=== PATIENT | female | born 2000 | race Caucasian/White ===

== ENCOUNTER 2025-05-04 09:20 | Emergency (ER) | payer OTHER ==
[2025-05-04 10:25] LABS: BASOPHILS ABSOLUTE AUTO 0.0 x10^3/uL (0.0-0.2); BASOPHILS PERCENT AUTO 0.2 % (0.2-1.2); EOSINOPHILS ABSOLUTE AUTO 0.1 x10^3/uL (0.0-0.5); EOSINOPHILS PERCENT AUTO 0.6 % (0.0-4.0); IMMATURE GRAN ABSOLUTE AUTO 0.02 x10^3/uL (0.00-0.07); IMMATURE GRAN PERCENT AUTO 0.20 % (0.00-0.43); LYMPHOCYTES ABSOLUTE AUTO 1.2 x10^3/uL (1.0-4.8); LYMPHOCYTES PERCENT AUTO 10.7 % (25.0-50.0); MONOCYTES ABSOLUTE AUTO 0.6 x10^3/uL (0.0-0.8); MONOCYTES PERCENT AUTO 5.1 % (2.0-11.0); NEUTROPHILS ABSOLUTE AUTO 9.5 x10^3/uL (1.8-7.7); NEUTROPHILS PERCENT AUTO 83.2 % (50.0-80.0); PLATELET COUNT,PLT 301 x10^3/uL (130-400); RED BLOOD CELL COUNT 4.39 x10^6/uL (4.00-5.50); WHITE BLOOD CELL COUNT,WBC 11.4 x10^3/uL (4.0-10.0)
[2025-05-04 10:40] LABS: A/G RATIO 1.17; ALANINE AMINOTRANSFERASE,ALT 40.0 U/L (14-59); ASPARTATE AMNIOTRANSFERASE,AST 29.0 U/L (15-37); BILIRUBIN TOTAL 0.4 mg/dL (0.2-1.0); BLOOD UREA NITROGEN,BUN 15.0 mg/dL (7-18); CARBON DIOXIDE,CO2 27.0 mmol/L (21-32); CHLORIDE,CL 101.0 mmol/L (98-107); CREATININE 0.7 mg/dL (0.55-1.02); EST CRCL DRUG DOSING (CG) 117.01 mL/min; GLUCOSE RANDOM 85.0 mg/dL (70-99); POTASSIUM,K 4.2 mmol/L (3.5-5.1); PROTEIN TOTAL,TP 7.8 g/dL (6.4-8.2); SODIUM,NA 139.0 mmol/L (136-145)
[2025-05-04 10:41] LABS: ESTIMATED GFR 125.0 mL/min (>=60); INR 0.9 (0.9-1.1); PTT,PARTIAL THROMBOPLSTIN TIME 28.3 SEC (23.5-33.2)
[2025-05-04 10:55] LABS: APPEARANCE,URINE SLIGHTLY CLOUDY (CLEAR); GLUCOSE,URINE NEGATIVE (NEGATIVE); OCCULT BLOOD,URINE LARGE (NEGATIVE)
[2025-05-04 11:02] LABS: EPITHELIAL CELLS,URINE FEW
== END 2025-05-04 11:37 | disposition home or self-care (01) ==
LOC: VM.ED 09:20
DX: D68.04 Acquired von Willebrand disease (principal); N92.0 Excessive and frequent menstruation with regular cycle; F17.210 Nicotine dependence, cigarettes, uncomplicated
CPT/HCPCS: 80053; 81001; 81025; 85025; 85610; 85730; 87428-QW; 87651; 99284